=== PATIENT | female | born 1995 | race Caucasian/White ===

== ENCOUNTER 2017-01-27 20:33 | Emergency (ER) | payer OTHER ==
[2017-01-27] MEDS ORDERED: methylPREDNISolone Sod Succ/PF 125 MG/2 ML VIAL ONE (20:40)
[2017-01-27] MEDS ORDERED: diphenhydrAMINE 50 MG/ML VIAL ONE (20:40)
[2017-01-27] MEDS ORDERED: Famotidine/PF 20 mg/2ml Vial ONE (20:40)
[2017-01-27] MEDS ORDERED: Water For Inject, Bacteriostat 30 ML ONE (20:40)
== END 2017-01-27 21:42 | disposition home or self-care (01) ==
LOC: ERS 20:33
DX: T78.40XA Allergy, unspecified, initial encounter (principal); F31.9 Bipolar disorder, unspecified; F41.9 Anxiety disorder, unspecified; Z79.899 Other long term (current) drug therapy
CPT/HCPCS: 96374; 96375; J1200; J2930; S0028